=== PATIENT | male | born 1960 | race Hispanic/Latino ===

== ENCOUNTER → 2017-09-19 | Outpatient (CLI) | payer OTHER | END | disposition home or self-care (01) | LOC: RAH 15:43 | PROVIDERS: ATTEND Family Medicine | DX: M19.021 Primary osteoarthritis, right elbow (principal); M79.89 Other specified soft tissue disorders | CPT/HCPCS: 73080 ==

== ENCOUNTER 2020-10-05 06:45 | Day surgery (SDC) | payer OTHER ==
[2020-09-29 12:31] LABS: BASOPHILS % (AUTO) 0.7 % (0.0-5.0); EOSINOPHILS % (AUTO) 4.2 % (0.0-8.0); HEMATOCRIT 37.9 % (42-54); MEAN CORPUSCULAR HGB CONC 33.5 g/dL (32.0-36.0); MEAN CORPUSCULAR VOLUME 86.5 fL (79-99); NEUTROPHILS % (AUTO) 68.2 % (40.0-77.0); PLATELET COUNT (AUTO) 189 K/uL (130-400); RED BLOOD CELL COUNT(AUTO) 4.38 MIL/uL (4.50-6.20); RED CELL DISTRIBUTION WIDTH 13.5 % (11.0-15.5); WHITE BLOOD COUNT (AUTO) 7.6 K/uL (4.8-10.8)
[2020-09-29 12:47] LABS: APPEARANCE,URINE Cloudy (CLEAR); BILIRUBIN,URINE Negative (NEGATIVE); COLOR,URINE Yellow (YELLOW); GLUCOSE, URINE (UA) 500 mg/dL (NEGATIVE); KETONES,URINE 15 mg/dL (NEGATIVE); LEUKOCYTE ESTERASE ,URINE Moderate (NEGATIVE); NITRATE,URINE Negative (NEGATIVE); OCCULT BLOOD,URINE Moderate (NEGATIVE); PH,URINE 5.5 (5.0-8.0); PROTEIN,URINE POS 1+ mg/dL (NEGATIVE)
[2020-09-29 12:52] LABS: INR 1.01 (0.85-1.15)
[2020-09-29 12:53] LABS: PARTIAL THROMBOPLASTIN TIME 25.4 SEC (26.3-35.5)
[2020-09-29 13:03] LABS: BACTERIA,URINE Moderate /HPF (None Seen); SQUAMOUS EPITHELIAL CELL,UR 0-2 /HPF (0-2)
[2020-09-29 13:05] LABS: CREATININE 1.1 mg/dL (0.5-1.5); POTASSIUM 4.4 mmol/L (3.5-5.1)
[2020-10-01 15:12] VITALS: BP 156/79
[~2020-10-05] VITALS: Ht 180.3 cm; Wt 100.2 kg
[2020-10-05] VITALS (18 sets, daily range): BP systolic 101–154; BP diastolic 62–88
[~2020-10-05 06:45] MED LIST: GENTAMICIN SULFATE 240 MG in SODIUM CHLORIDE 0.9% 100 ML IV SCH
[2020-10-05] MEDS ORDERED: SODIUM CHLORIDE 0.9% 1000ML 1,000 ML IV ONE (07:13)
[2020-10-05] MEDS: CEFTRIAXONE SODIUM 1 GM IVP ONE ×2 (07:19→09:00)
[2020-10-05] MEDS ORDERED: LEVO500T89 PO (07:28)
[2020-10-05] MEDS ORDERED: TAMS-1 PO (07:28)
[2020-10-05] MEDS ORDERED: LISI20TA24 PO (07:28)
[2020-10-05] MEDS ORDERED: LEVO25CA4 PO (07:28)
[2020-10-05] MEDS ORDERED: GLIM4TAB36 PO (07:28)
[2020-10-05] MEDS ORDERED: METF-444 PO (07:28)
[2020-10-05] MEDS ORDERED: LIDOCAINE PF 2% 5ML ABBOJECT ONE (07:53)
[2020-10-05] MEDS ORDERED: DEXAMETHASONE SOD PHOSPHATE 10MG/ML 1ML VIAL ONE (07:53)
[2020-10-05] MEDS ORDERED: SUCCINYLCHOLINE 200MG/10ML SYR ONE (07:53)
[2020-10-05] MEDS ORDERED: PROPOFOL 10 MG/ML 20ML VIAL IV ONE (07:54)
[2020-10-05] MEDS ORDERED: ROCURONIUM 10MG/1ML SYR 10 MG/ML ML ONE (07:54)
[2020-10-05] MEDS ORDERED: MIDAZOLAM HCL 1 MG/ML 2ML VIAL ONE (07:54)
[2020-10-05] MEDS ORDERED: NEOSTIGMINE 5MG/5ML SYR IV ONE (07:54)
[2020-10-05] MEDS ORDERED: ONDANSETRON HCL 4 MG/2 ML VIAL ONE (07:54)
[2020-10-05] MEDS ORDERED: GLYCOPYRROLATE 1 MG/5 ML SYRINGE ONE (07:54)
[2020-10-05] MEDS ORDERED: FENTANYL CITRATE PF 50 MCG/1 ML 2ML VIAL ONE (07:54)
[2020-10-05] MEDS ORDERED: MEPERIDINE-PF 25 MG/ML SYG ONE (07:57)
[2020-10-05] MEDS ORDERED: EPHEDRINE SULFATE 50 MG/ML AMPULE ONE (09:33)
== END 2020-10-05 12:30 | disposition home or self-care (01) ==
LOC: DAH 06:45
PROVIDERS: ATTEND Urology
DX: N40.1 Benign prostatic hyperplasia with lower urinary tract symptoms (principal); R33.9 Retention of urine, unspecified; I10 Essential (primary) hypertension; E11.9 Type 2 diabetes mellitus without complications; E03.9 Hypothyroidism, unspecified; Z20.828 Contact with and (suspected) exposure to other viral communicable diseases; E78.5 Hyperlipidemia, unspecified; Z79.01 Long term (current) use of anticoagulants; Z79.899 Other long term (current) drug therapy
CPT/HCPCS: 36415; 52648; 71045; 80048; 81001; 82948 ×3; 85025; 85610; 85730; 87077; 87088; 87186; 93005; A4215; A4221; A4222; A4223; A4354; A4358; A4600; A4663; C1758; C9803; J0330; J0696; J1100; J1580; J2001; J2175; J2250; J2405; J2704; J2710; J3010; J3490 ×2; J7030 ×2; U0003

== ENCOUNTER 2021-06-20 16:43 | Emergency (ER) | payer OTHER ==
[~2021-06-20] VITALS: Ht 180.3 cm; Wt 94.3 kg
[~2021-06-20 16:43] MED LIST changes: -GENTAMICIN SULFATE 240 MG in SODIUM CHLORIDE 0.9% 100 ML IV SCH; +GLIM4TAB36 PO; +LEVO25CA4 PO; +LEVO500T90 PO; +LISI20TA24 PO; +METF-444 PO; +TAMS-1 PO
[2021-06-20 17:14] LABS: BASOPHILS % (AUTO) 0.3 % (0.0-5.0); EOSINOPHILS % (AUTO) 0.3 % (0.0-8.0); HEMATOCRIT 37.7 % (42-54); MEAN CORPUSCULAR HEMOGLOBIN 28.3 pg (27.0-33.0); MEAN CORPUSCULAR HGB CONC 32.6 g/dL (32.0-36.0); MEAN CORPUSCULAR VOLUME 86.9 fL (79-99); MONOCYTES % (AUTO) 6.7 % (3.0-13.0); NEUTROPHILS % (AUTO) 75.1 % (40.0-77.0); PLATELET COUNT (AUTO) 195 K/uL (130-400); RED BLOOD CELL COUNT(AUTO) 4.34 MIL/uL (4.50-6.20); RED CELL DISTRIBUTION WIDTH 14.2 % (11.0-15.5); WHITE BLOOD COUNT (AUTO) 7.1 K/uL (4.8-10.8)
[2021-06-20 17:30] LABS: CREATININE 1.3 mg/dL (0.5-1.5); POTASSIUM 4.4 mmol/L (3.5-5.1)
[2021-06-20 17:34] LABS: ALBUMIN 4.2 g/dL (3.5-5.0); BILIRUBIN,TOTAL 0.7 mg/dL (0.2-1.0); TOTAL PROTEIN, SERUM 7.8 g/dL (6.0-8.3)
[2021-06-20 19:41] VITALS: BP 146/79
== END 2021-06-20 20:20 | disposition home or self-care (01) ==
LOC: EDH 16:43
DX: S00.81XA Abrasion of other part of head, initial encounter (principal); E11.649 Type 2 diabetes mellitus with hypoglycemia without coma; I10 Essential (primary) hypertension; Z79.84 Long term (current) use of oral hypoglycemic drugs; Z79.899 Other long term (current) drug therapy; X58.XXXA Exposure to other specified factors, initial encounter; Y93.89 Activity, other specified; Y92.89 Other specified places as the place of occurrence of the external cause; Y99.8 Other external cause status
CPT/HCPCS: 36415; 70450; 80053; 82948; 84484; 85025; 93005

== ENCOUNTER 2022-11-18 19:38 | Inpatient (IN) | payer OTHER ==
[~2022-11-18] VITALS: Ht 180.3 cm; Wt 91.0 kg
[~2022-11-18 19:38] MED LIST changes: +LEVO-70 PO; -LEVO500T90 PO
[2022-11-18 20:48] LABS: BASOPHILS % (AUTO) 0.5 % (0.0-5.0); EOSINOPHILS % (AUTO) 1.4 % (0.0-8.0); HEMATOCRIT 44.7 % (42-54); LYMPHOCYTES % (AUTO) 14.2 % (21.0-51.0); MEAN CORPUSCULAR HEMOGLOBIN 28.9 pg (27.0-33.0); MEAN CORPUSCULAR HGB CONC 34.2 g/dL (32.0-36.0); MEAN CORPUSCULAR VOLUME 84.5 fL (79-99); MONOCYTES % (AUTO) 8.5 % (3.0-13.0); NEUTROPHILS % (AUTO) 74.8 % (40.0-77.0); PLATELET COUNT (AUTO) 191 K/uL (130-400); RED BLOOD CELL COUNT(AUTO) 5.29 MIL/uL (4.50-6.20); RED CELL DISTRIBUTION WIDTH 13.5 % (11.0-15.5); WHITE BLOOD COUNT (AUTO) 10.3 K/uL (4.8-10.8)
[2022-11-18 20:55] LABS: INR 0.94 (0.85-1.15); PROTHROMBIN TIME 10.3 SEC (9.6-11.6)
[2022-11-18 20:56] LABS: PARTIAL THROMBOPLASTIN TIME 24.9 SEC (26.3-35.5)
[2022-11-18 20:59] LABS: CREATININE 1.2 mg/dL (0.5-1.5); POTASSIUM 3.7 mmol/L (3.5-5.1)
[2022-11-18 21:04] LABS: ALBUMIN 3.9 g/dL (3.5-5.0); TOTAL PROTEIN, SERUM 8.4 g/dL (6.0-8.3)
[2022-11-18 22:11] LABS: APPEARANCE,URINE CLEAR (CLEAR); BILIRUBIN,URINE NEGATIVE (NEGATIVE); COLOR,URINE YELLOW (YELLOW); GLUCOSE, URINE (UA) >=1000 mg/dL (NEGATIVE); KETONES,URINE 20 mg/dL (NEGATIVE); LEUKOCYTE ESTERASE ,URINE 75 Leu/uL (NEGATIVE); NITRATE,URINE NEGATIVE (NEGATIVE); OCCULT BLOOD,URINE NEGATIVE (NEGATIVE); PH,URINE 5.5 (5.0-8.0); PROTEIN,URINE 100 mg/dL (NEGATIVE); UROBILINOGEN,URINE 0.2 mg/dL (0.2-1.0)
[2022-11-18 22:14] LABS: MUCUS,URINE RARE LPF (None Seen); SQUAMOUS EPITHELIAL CELL,UR FEW /HPF (0-2)
[2022-11-18] MEDS ORDERED: ZOSYN 3.375GM +NS 50ML IVPB ONE (22:30)
[2022-11-18] MEDS ORDERED: ONDANSETRON 4MG INJ IV PRN (23:00)
[2022-11-18] MEDS ORDERED: POTASSIUM CHLORIDE 10% ELIXIR 20 MEQ/15 ML UDCUP PO PRN (23:00)
[2022-11-18] MEDS ORDERED: OCTREOTIDE ACETATE 100 MCG/ML AMP IV ONE (23:00)
[2022-11-18] MEDS ORDERED: MORPHINE 2 MG SYG IV PRN (23:00)
[2022-11-18] MEDS ORDERED: MAGNESIUM 2GM PREMIX 50ML 50 ML IV PRN (23:00)
[2022-11-18] MEDS ORDERED: MORPHINE 4 MG SYG IV PRN (23:00)
[2022-11-18] MEDS ORDERED: ACETAMINOPHEN 325 MG TAB PO PRN ×2 (23:00)
[2022-11-18] MEDS ORDERED: POTASSIUM CHLORIDE 20MEQ/100ML 100 ML IV PRN (23:00)
[2022-11-18] MEDS ORDERED: KCL 20 MEQ ERTAB PO PRN (23:00)
[2022-11-18 23:27] LABS: HEMATOCRIT 41.9 % (42-54)
[2022-11-19] MEDS ORDERED: OCTREOTIDE ACETATE 200 MCG/ML 5 ML VIAL ONE (01:14)
[2022-11-19] MEDS: OCTREOTIDE ACETATE 1,250 MCG in 0.9% NACL 250ML 250 ML IV SCH (01:27)
[2022-11-19] MEDS: LACTATED RINGERS 1000ML 1,000 ML IV SCH ×2 (01:28→15:40)
[2022-11-19 03:10] VITALS: BP 160/91
[2022-11-19 05:26] LABS: BASOPHILS % (AUTO) 0.5 % (0.0-5.0); EOSINOPHILS % (AUTO) 2.5 % (0.0-8.0); HEMATOCRIT 40.5 % (42-54); LYMPHOCYTES % (AUTO) 22.1 % (21.0-51.0); MEAN CORPUSCULAR HEMOGLOBIN 28.5 pg (27.0-33.0); MEAN CORPUSCULAR HGB CONC 33.8 g/dL (32.0-36.0); MEAN CORPUSCULAR VOLUME 84.2 fL (79-99); MONOCYTES % (AUTO) 9.9 % (3.0-13.0); NEUTROPHILS % (AUTO) 64.2 % (40.0-77.0); PLATELET COUNT (AUTO) 218 K/uL (130-400); RED BLOOD CELL COUNT(AUTO) 4.81 MIL/uL (4.50-6.20); RED CELL DISTRIBUTION WIDTH 13.8 % (11.0-15.5); WHITE BLOOD COUNT (AUTO) 8.5 K/uL (4.8-10.8)
[2022-11-19] MEDS: INSULIN HUMULIN R 100 UNIT/ML 3ML SQ SCH ×3 (05:50→16:30)
[2022-11-19 05:55] LABS: MAGNESIUM 1.6 mg/dL (1.80-2.40); PHOSPHORUS 4.2 mg/dL (2.5-4.9); POTASSIUM 3.6 mmol/L (3.5-5.1); THYROID STIMULATING HORMONE 2.98 uIU/mL (0.36-3.74)
[2022-11-19] MEDS: ZOSYN 3.375GM+NS 50ML 50 ML IVPB SCH ×3 (06:18→20:16)
[2022-11-19 08:23] VITALS: BP 143/79
[2022-11-19 09:46] LABS: HEMATOCRIT 41.1 % (42-54)
[2022-11-19] MEDS: PANTOPRAZOLE 40 MG/VIAL IVP SCH ×2 (10:27→20:16)
[2022-11-19] MEDS: LISINOPRIL 40 MG TABLET PO SCH (10:27)
[2022-11-19 11:32] VITALS: BP 143/76
[2022-11-19 16:04] LABS: HEMATOCRIT 39.6 % (42-54)
[2022-11-19 18:00] VITALS: BP 127/73
[2022-11-19] MEDS ORDERED: METF-444 PO (18:25)
[2022-11-19] MEDS ORDERED: SIMV-43 PO (18:25)
[2022-11-19 20:00] VITALS: BP 138/81
[2022-11-19 22:39] LABS: HEMATOCRIT 39.4 % (42-54)
[2022-11-20] VITALS: BP 111/67
[2022-11-20] MEDS: INSULIN HUMULIN R 100 UNIT/ML 3ML SQ SCH ×5 (01:09→20:13)
[2022-11-20 04:00] VITALS: BP 149/79
[2022-11-20] MEDS: ZOSYN 3.375GM+NS 50ML 50 ML IVPB SCH ×3 (04:23→20:05)
[2022-11-20 04:54] LABS: HEMATOCRIT 40.6 % (42-54)
[2022-11-20 05:32] LABS: HEMOGLOBIN A1C 10.7 % (4.0-6.0)
[2022-11-20] MEDS: LEVOTHYROXINE 25 MCG TABLET PO SCH (06:16)
[2022-11-20 07:30] VITALS: BP 138/80
[2022-11-20 08:47] LABS: HEMATOCRIT 39.3 % (42-54); MEAN CORPUSCULAR HEMOGLOBIN 28.9 pg (27.0-33.0); MEAN CORPUSCULAR HGB CONC 33.8 g/dL (32.0-36.0); MEAN CORPUSCULAR VOLUME 85.2 fL (79-99); RED BLOOD CELL COUNT(AUTO) 4.61 MIL/uL (4.50-6.20); RED CELL DISTRIBUTION WIDTH 13.9 % (11.0-15.5); WHITE BLOOD COUNT (AUTO) 5.9 K/uL (4.8-10.8)
[2022-11-20 08:53] LABS: CREATININE 1.2 mg/dL (0.5-1.5); POTASSIUM 4.1 mmol/L (3.5-5.1)
[2022-11-20] MEDS ORDERED: LISINOPRIL 20 MG TABLET PO SCH (09:00)
[2022-11-20] MEDS: PANTOPRAZOLE 40 MG/VIAL IVP SCH ×2 (09:45→20:05)
[2022-11-20] MEDS: LISINOPRIL 40 MG TABLET PO SCH (09:45)
[2022-11-20] MEDS: TAMSULOSIN HCL 0.4 MG CAP.ER.24H PO SCH (09:45)
[2022-11-20 11:25] VITALS: BP 119/73
[2022-11-20 16:00] VITALS: BP 109/71
[2022-11-20 16:23] LABS: HEMATOCRIT 39.2 % (42-54)
[2022-11-20] MEDS: OCTREOTIDE ACETATE 1,250 MCG in 0.9% NACL 250ML 250 ML IV SCH (20:05)
[2022-11-20 20:13] VITALS: BP 141/75
[2022-11-20 22:39] LABS: HEMATOCRIT 38.2 % (42-54)
[2022-11-21] VITALS: BP 138/71
[2022-11-21 03:38] VITALS: BP 152/72
[2022-11-21] MEDS: ZOSYN 3.375GM+NS 50ML 50 ML IVPB SCH ×2 (04:22→14:42)
[2022-11-21] MEDS: LEVOTHYROXINE 25 MCG TABLET PO SCH (06:12)
[2022-11-21] MEDS: INSULIN HUMULIN R 100 UNIT/ML 3ML SQ SCH ×3 (06:12→16:37)
[2022-11-21 08:00] VITALS: BP 126/81
[2022-11-21] MEDS: PANTOPRAZOLE 40 MG/VIAL IVP SCH (09:01)
[2022-11-21] MEDS: TAMSULOSIN HCL 0.4 MG CAP.ER.24H PO SCH (09:01)
[2022-11-21] MEDS: LISINOPRIL 40 MG TABLET PO SCH (09:01)
[2022-11-21 11:41] VITALS: BP 130/85
[2022-11-21 16:00] VITALS: BP 153/77
[2022-11-21] MEDS ORDERED: METR-172 PO (17:16)
[2022-11-21] MEDS ORDERED: CIPR750T6 PO (17:16)
[2022-11-21] MEDS ORDERED: LISI40TA9 PO (17:16)
== END 2022-11-21 20:00 | disposition home or self-care (01) | DRG 378 ==
LOC: EDH 19:38 → EDHIP 19:39 → 4CH 11-19 03:10
PROVIDERS: ADMIT Internal Medicine; ATTEND Internal Medicine
DX: K57.33 Diverticulitis of large intestine without perforation or abscess with bleeding (principal); N39.0 Urinary tract infection, site not specified; Z20.822 Contact with and (suspected) exposure to COVID-19; E11.65 Type 2 diabetes mellitus with hyperglycemia; N40.0 Benign prostatic hyperplasia without lower urinary tract symptoms; E03.9 Hypothyroidism, unspecified; I10 Essential (primary) hypertension; G89.29 Other chronic pain
CPT/HCPCS: 36415; 74176; 80048; 80053; 81001; 82270; 82948; 83036; 83605; 83735; 84100; 84145; 84443; 85014; 85018; 85025; 85027; 85610; 85730; 86850; 86900; 86901; 87040; 87088; 87635; 93005; C9113; G0378; J1815; J2354; J2543; J3475; J7050